=== PATIENT | male | born 2000 | race Caucasian/White ===

== ENCOUNTER 2021-04-02 19:52 | Emergency (ER) | payer OTHER, BC, SELFPAY ==
[2021-04-02 19:58] VITALS: BP 145/86; PULSE 95; RESP 18; TEMP 36.8; O2SAT 97; BMI 17.6
--- NOTE | 2021-04-02 20:14 | ED.GENADULT ---
HPI - General Adult General Chief complaint: General Medical Stated complaint: surgery on neck 04/01..progressive numbness on Time Seen by Provider: 04/02/21 20:14 Source: patient Mode of arrival: ambulatory Limitations: no limitations History of Present Illness HPI narrative: Patient had upper cervical lymph node extraction which was 3 cm size yesterday morning by ENT surgeon later during the day patient noticed numbness at the site of surgery spreading to the chin area patient able to eat and swallow no motor weakness able to smile no significant pain in the side of surgery Related Data Previous Rx's Medication Instructions Recorded prednisone 20 mg tablet 40 mg PO DAILY #10 tab 04/02/21 Allergies Allergy/AdvReac Type Severity Reaction Status Date / Time No Known Allergies Allergy Verified 04/02/21 19:57 Review of Systems Review of Systems: Yes all other systems are reviewed and are negative [facility] Social History Social History Alcohol intake: never Patient Tobacco Use Status: Never used Tobacco Smoked in Last 30 Days: No Use of substances other than those prescribed or required for medical reasons: No Advance Directives: No Advance Directives Information Provided: No Physical Exam ED Vital Signs: Vital Signs - 24 hr 04/02/21 19:58 Temperature 98.3 F Pulse Rate 95 Respiratory Rate 18 Blood Pressure 145/86 H Pulse Oximetry 97 BMI result Body Mass Index 17.6 Const General: no acute distress and well developed HENMT Face images: 1. Site of lymph node extraction no crepitus no significant swelling or tenderness no crepitus Mouth: Normal oral and palatal mucosa present, tongue normal, oropharynx normal and moist mucous membranes Resp Effort & Inspection: normal respiratory effort Cardio Rate: regular rate Heart sounds: S1 normal heart sound present and S2 normal heart sound present Neuro Other: Decreased sensation to light touch and pinprick at the site of surgery right upper cervical area to the right chin patient has a symmetrical smile Medical Decision Making MDM Narrative Medical decision making narrative: Patient with slight sensory loss to light touch and pinprick at the site of surgery and right lower chin likely from inflammation temporarily from the surgery , case discussed with patient's ENT surgeon agreed with the same will follow up as outpatient no signs of facial nerve palsy Discharge Plan Discharge Clinical Impression: Trigeminal anesthesia Patient Disposition: Home, Self-Care Instructions: Paresthesia (ED) Additional Instructions: Possibly you have paresthesia secondary to trigeminal nerve injury which likely is transient Take prednisone as prescribed and follow with ENT specialist Report to the ER if increased swelling or worsening of the paresthesia Prescriptions: New prednisone 20 mg tablet 40 mg PO DAILY Qty: 10 0RF Interventions: ED Discharge Assessment Last Done: 04/02/21 20:45 Discharge Date/Time: 04/02/21 20:49
[2021-04-02] MEDS: predniSONE 20 MG TABLET 40 MG PO (20:39)
--- NOTE | 2021-04-02 20:43 | PC.NURSE ---
pt seen by the provider, no difficutly swallowing, pt swelling has been assessed and plan is to discharge pt on prednisone. pt talking in full sentences, smile uneven and is due to the surgery. no increase noted.
== END 2021-04-02 20:49 | disposition home or self-care (01) ==
LOC: HO.ED 20:42
PROVIDERS: Emergency Provider Internal Medicine
DX: G50.0 Trigeminal neuralgia (principal); R20.0 Anesthesia of skin; Z98.890 Other specified postprocedural states
CPT/HCPCS: 99283; 99284